=== PATIENT | female | born 1965 | race Caucasian/White ===

== ENCOUNTER → 2017-01-16 | Outpatient (CLI) | payer BC ==
--- NOTE | 2017-01-16 16:00 | CR ---
EXAMINATION: Two-view chest (PA and Lateral views). HISTORY: Shortness of breath. Comparison: CT 09/19/2015 FINDINGS: The trachea is midline. The cardiomediastinal silhouette is within normal limits. No pulmonary infil trates, effusions or pneumothorax. There is a calcified granuloma within the left lung base. Osseous structures appear unremarkable. IMPRESSION: No acute cardiopulmonary process.
== END ==
LOC: MW.CHFP 15:03
PROVIDERS: ATTEND Nurse Practitioner Family
DX: R06.02 Shortness of breath (principal); R05 Cough
CPT/HCPCS: 36415; 71020; 71020-26; 85025

== ENCOUNTER 2017-01-22 11:08 | Emergency (ER) | payer BC ==
[2017-01-22] MEDS ORDERED: Sodium Chloride 0.9% 10 ML Syringe FLUSH PRN ×2 (11:17→11:18)
[2017-01-22] MEDS ORDERED: Albuterol/Ipratropium 3.0-0.5 MG/3 ML Neb Soln NEB ONE ×2 (11:17→11:34)
[2017-01-22] MEDS ORDERED: Sodium Chloride 0.9% 2.5 ML Syringe FLUSH PRN ×2 (11:17→11:18)
[2017-01-22] MEDS ORDERED: methylPREDNISolone Sodium Succinate 125 MG/2 ML SDV IVPUSH ONE (11:18)
--- NOTE | 2017-01-22 11:35 | EDM.PDOC ---
ED HISTORY OF PRESENT ILLNESS - General Chief Complaint: Respiratory Problem Stated Complaint: SHORTNESS OF BREATH(COLD) Time Seen by Provider: 01/22/17 11:17 Source of Information: Reports: Patient History Limitations: Reports: Respiratory distress - History of Present Illness INITIAL COMMENTS - FREE TEXT/NARRATIVE: HISTORY AND PHYSICAL: [51-year-old female who has been taking her inhaler every half hour all night states she cannot breathe] History of Present Illness: [Patient was in the hospital year ago for acute bronchitis She was in the clinic is to make on antibiotics and an inhaler] Review of Systems: As per history of present illness and below otherwise all systems reviewed and negative. Past medical history: As per history of present illness and as reviewed below otherwise noncontributory. Surgical history: As per history of present illness and as reviewed below otherwise noncontributory. Social history: No reported history of drug or alcohol abuse. Family history: As per history of present illness and as reviewed below otherwise noncontributory. Physical exam: Alert teary-eyed HEENT: Atraumatic, normocehpalic, pupils reactive, negative for conjunctival pallor or scleral icterus, mucous membranes moist, throat clear, neck supple, nontender, trachea midline. Lungs: Tight on auscultation, breath sounds equal bilaterally, chest non tender. Crackles Heart: S1S2, regular, negative for clicks, rubs, or JVD. Abdomen: Soft, nondistended, nontender. Negative for masses or hepatossplenmegaly. Negative for costovertebral tenderness. Extremities: Atraumatic, negative for cords or calf pain. Neurovascular unremarkable. Neuro: Awake, alert, oriented. Cranial nerves II through XII unremarkable. Cerebellum unremarkable. Motor and sensory unremarkable throughout. Exam nonfocal. Diagnostics: [CBC CMP chest x-ray] Therapeutics: [] DuoNeb x2, Solu-Medrol IV Impression: [acute bronchiolitis/ reactive airway] Plan: [Neb machine DuoNeb treatment q 4 hours prn wheezing SOB. Robitussin with Codiene 2 tsp QID prn cough #160ml Follow up with your PCP, Dr. Baldwin call tomorrow for appt in 2 days.] Definitive disposition and diagnosis as appropriate pending reevaluation and review of above. Timing/Duration: Reports: Week(s): Severity: moderate Location, General: Reports: chest Improves with: Reports: None Worsens with: Reports: Breathing, Movement - Related Data Allergies/ADRs: Allergies Allergy/AdvReac Type Severity Reaction Status Date / Time No Known Allergies Allergy Verified 01/22/17 11:14 Home Meds: Home Meds Albuterol [Proventil HFA] 1 puff INH QID PRN #1 inhaler 09/22/15 [Rx] Albuterol/Ipratropium [DuoNeb 3.0-0.5 MG/3 ML] 3 ml NEB Q4HRRT #1 bottle [Rx] Azithromycin [Azithromycin] 1 tab PO ASDIRECTED 01/22/17 [History] Benzonatate 100 mg PO TID 01/22/17 [History] Past Medical History - Past Health History Medical/Surgical History: Denies Medical/Surgical History - Infectious Disease History Infectious Disease History: Reports: Chicken pox Social & Family History - Tobacco Use Smoking Status *Q: Former Smoker Years of Tobacco use: 34 Packs/Tins Daily: 1 Second Hand Smoke Exposure: Yes - Caffeine Use Caffeine Use: Reports: Coffee Caffeine Use Comment: 6-8 cups/day - Recreational Drug Use Recreational Drug Use: No ED ROS GENERAL - Review of Systems Review Of Systems: ROS reveals no pertinent complaints other than HPI. ED EXAM, GENERAL - Physical Exam Exam: See Below Course - Vital Signs Last Recorded V/S: Last Vital Signs Temp 36.3 C 01/22/17 11:17 Pulse 120 H 01/22/17 11:17 Resp 20 01/22/17 11:17 BP 184/91 H 01/22/17 11:17 Pulse Ox 93 L 01/22/17 11:17 - Orders/Labs/Meds Orders: Active Orders 24 hr Category Date Time Status RT Aerosol Therapy [RC] ASDIRECTED Care 01/22/17 11:17 Active RT Aerosol Therapy [RC] ASDIRECTED Care 01/22/17 11:34 Active Chest 2V [CR] Stat Exams 01/22/17 11:17 Taken Sodium Chloride 0.9% [Saline Flush] Med 01/22/17 11:17 Active 10 ml FLUSH ASDIRECTED PRN Sodium Chloride 0.9% [Saline Flush] Med 01/22/17 11:18 Active 10 ml FLUSH ASDIRECTED PRN Sodium Chloride 0.9% [Saline Flush] Med 01/22/17 11:17 Active 2.5 ml FLUSH ASDIRECTED PRN Sodium Chloride 0.9% [Saline Flush] Med 01/22/17 11:18 Active 2.5 ml FLUSH ASDIRECTED PRN Saline Lock Insert [OM.PC] Stat Ot 01/22/17 11:17 Ordered Saline Lock Insert [OM.PC] Stat Ot 01/22/17 11:18 Ordered Medication Orders Sodium Chloride (Saline Flush) 10 ml FLUSH ASDIRECTED PRN PRN Reason: Keep Vein Open Last Admin: 01/22/17 11:27 Dose: 10 ml Sodium Chloride (Saline Flush) 2.5 ml FLUSH ASDIRECTED PRN PRN Reason: Keep Vein Open Last Admin: 01/22/17 11:27 Dose: 2.5 ml Sodium Chloride (Saline Flush) 10 ml FLUSH ASDIRECTED PRN PRN Reason: Keep Vein Open Last Admin: 01/22/17 11:27 Dose: 10 ml Sodium Chloride (Saline Flush) 2.5 ml FLUSH ASDIRECTED PRN PRN Reason: Keep Vein Open Last Admin: 01/22/17 11:27 Dose: 2.5 ml Labs: Laboratory Tests 01/22/17 01/22/17 Range/Units 11:24 11:24 WBC 8.91 (4.0-11.0) K/uL RBC 4.66 (4.30-5.90) M/uL Hgb 14.0 (12.0-16.0) g/dL Hct 43.0 (36.0-46.0) % MCV 92.3 (80.0-98.0) fL MCH 30.0 (27.0-32.0) pg MCHC 32.6 (31.0-37.0) g/dL RDW Std Deviation 44.1 (28.0-62.0) fl RDW Coeff of Hui 13 (11.0-15.0) % Plt Count 262 (150-400) K/uL MPV 9.90 (7.40-12.00) fL Neut % (Auto) 71.0 (48.0-80.0) % Lymph % (Auto) 14.7 L (16.0-40.0) % [place] % (Auto) 7.1 (0.0-15.0) % Eos % (Auto) 6.6 (0.0-7.0) % Baso % (Auto) 0.6 (0.0-1.5) % Neut # 6.3 H (1.4-5.7) K/uL Lymph # 1.3 (0.6-2.4) K/uL [place] # 0.6 (0.0-0.8) K/uL Eos # 0.6 (0.0-0.7) K/uL Baso # 0.1 (0.0-0.1) K/uL Nucleated RBC % 0.0 /100WBC Nucleated RBCs # 0 K/uL Sodium 143 (136-146) mmol/L Potassium 3.9 (3.5-5.1) mmol/L Chloride 107 (98-110) mmol/L Carbon Dioxide 25 (21-31) mmol/L BUN 11 (6.0-23.0) mg/dL Creatinine 0.8 (0.6-1.5) mg/dL Est Cr Clr Drug Dosing 65.80 mL/min Estimated GFR (MDRD) > 60.0 ml/min Glucose 112 H (60-110) mg/dL Calcium 9.5 (8.8-10.8) mg/dL Total Bilirubin 0.7 (0.1-1.5) mg/dL AST 16 (5-40) IU/L ALT 19 (8-54) IU/L Alkaline Phosphatase 92 (40-150) Total Protein 8.2 H (6.0-8.0) g/dL Albumin 4.2 (3.5-5.0) g/dL Globulin 4.0 H (2.0-3.5) g/dL Albumin/Globulin Ratio 1.1 L (1.3-2.8) Meds: Medications Generic Name Dose Route Start Last Admin Trade Name Freq PRN Reason Stop Dose Admin Sodium Chloride 10 ml 01/22/17 11:17 01/22/17 11:27 Saline Flush FLUSH 10 ml ASDIRECTED PRN Administration Keep Vein Open Sodium Chloride 2.5 ml 01/22/17 11:17 01/22/17 11:27 Saline Flush FLUSH 2.5 ml ASDIRECTED PRN Administration Keep Vein Open Sodium Chloride 10 ml 01/22/17 11:18 01/22/17 11:27 Saline Flush FLUSH 10 ml ASDIRECTED PRN Administration Keep Vein Open Sodium Chloride 2.5 ml 01/22/17 11:18 01/22/17 11:27 Saline Flush FLUSH 2.5 ml ASDIRECTED PRN Administration Keep Vein Open Discontinued Medications Generic Name Dose Route Start Last Admin Trade Name Freq PRN Reason Stop Dose Admin Albuterol/Ipratropium 3 ml 01/22/17 11:17 01/22/17 11:27 Duoneb 3.0-0.5 Mg/3 Ml NEB 01/22/17 11:18 3 ml ONETIME ONE Administration Albuterol/Ipratropium 3 ml 01/22/17 11:34 01/22/17 11:49 Duoneb 3.0-0.5 Mg/3 Ml NEB 01/22/17 11:35 3 ml ONETIME ONE Administration Methylprednisolone Sodium Succinate 125 mg 01/22/17 11:18 01/22/17 11:27 Solu-Medrol IVPUSH 01/22/17 11:19 125 mg ONETIME ONE Administration Departure - Departure Time of Disposition: 12:38 Disposition: Home, Self-Care 01 Condition: good Clinical Impression: Acute bronchiolitis Qualifiers: Bronchiolitis organism: unspecified organism Qualified Code(s): J21.9 - Acute bronchiolitis, unspecified Reactive airway disease Qualifiers: Asthma severity: moderate persistent Asthma complication type: with acute exacerbation Qualified Code(s): J45.41 - Moderate persistent asthma with (acute ) exacerbation Prescriptions: Albuterol/Ipratropium [DuoNeb 3.0-0.5 MG/3 ML] 3 ml NEB Q4HRRT #1 bottle Forms: ED Department Discharge Additional Instructions: The following information is given to patients seen in the emergency department who are being discharged to home. This information is to outline your options for follow-up care. We provide all patients seen in our emergency department with a follow-up referral. The need for follow-up, as well as the timing and circumstances, are variable depending upon the specifics of your emergency department visit. If you don't have a primary care physician on staff, we will provide you with a referral. We always advise you to contact your personal physician following an emergency department visit to inform them of the circumstance of the visit and for follow-up with them and/or the need for any referrals to a consulting specialist. The emergency department will also refer you to a specialist when appropriate. This referral assures that you have the opportunity for followup care with a specialist. All of these measure are taken in an effort to provide you with optimal care, which includes your followup. Under all circumstances we always encourage you to contact your private physician who remains a resource for coordinating your care. When calling for followup care, please make the office aware that this follow-up is from your recent emergency room visit. If for any reason you are refused follow-up, please contact the [facility] emergency department at and asked to speak to the emergency department charge nurse. Followup with her primary care provider Dr. Baldwin in 2 days - My Orders Last 24 Hours: My Active Orders 01/22/17 11:17 RT Aerosol Therapy [RC] ASDIRECTED Chest 2V [CR] Stat Sodium Chloride 0.9% [Saline Flush] 10 ml FLUSH ASDIRECTED PRN Sodium Chloride 0.9% [Saline Flush] 2.5 ml FLUSH ASDIRECTED PRN Saline Lock Insert [OM.PC] Stat 01/22/17 11:18 Sodium Chloride 0.9% [Saline Flush] 10 ml FLUSH ASDIRECTED PRN Sodium Chloride 0.9% [Saline Flush] 2.5 ml FLUSH ASDIRECTED PRN Saline Lock Insert [OM.PC] Stat 01/22/17 11:34 RT Aerosol Therapy [RC] ASDIRECTED - Assessment/Plan Last 24 Hours: My Active Orders 01/22/17 11:17 RT Aerosol Therapy [RC] ASDIRECTED Chest 2V [CR] Stat Sodium Chloride 0.9% [Saline Flush] 10 ml FLUSH ASDIRECTED PRN Sodium Chloride 0.9% [Saline Flush] 2.5 ml FLUSH ASDIRECTED PRN Saline Lock Insert [OM.PC] Stat 01/22/17 11:18 Sodium Chloride 0.9% [Saline Flush] 10 ml FLUSH ASDIRECTED PRN Sodium Chloride 0.9% [Saline Flush] 2.5 ml FLUSH ASDIRECTED PRN Saline Lock Insert [OM.PC] Stat 01/22/17 11:34 RT Aerosol Therapy [RC] ASDIRECTED
[2017-01-22 11:53] LABS: CHLORIDE,CL 107 mmol/L (98-110); SODIUM,NA 143 mmol/L (136-146)
[2017-01-22 12:57] VITALS: BP 154/78
--- NOTE | 2017-01-23 21:20 | CR ---
EXAM DATE: 01/22/17 PATIENT'S AGE: 51 Patient: SEVEN PEREA Facility: [place], [place] Site . Site : [id number] Study: XRay Chest [id number]/12/2017 11:44:57 AM Ordering Physician: Doctor Marquez Final Report: Indication: [id number]. Technique: PA and lateral chest x-ray Comparison: January 16, 2017. Findings: Benign calcified granuloma in the left lung base medially is stable with calcified lymph nodes in the left hilar region stable with findings consistent with sequela of previous granulomatous disease. Lungs are otherwise clear without infiltrate. Heart size is normal. Otherwise negative. Dictated by Doron Tyler MD @ Jan 22 2017 11:57AM (Electronic Signature) Report Signed by Proxy and Original Signed Document filed in the Medical Record. [place]
== END 2017-01-22 12:45 | disposition home or self-care (01) ==
LOC: MW.ED 11:08
DX: J45.41 Moderate persistent asthma with (acute) exacerbation (principal); J21.9 Acute bronchiolitis, unspecified; Z87.891 Personal history of nicotine dependence; Z79.899 Other long term (current) drug therapy
CPT/HCPCS: 36415; 71020; 80053; 85025; 87804; 87807; 94640; 94664; 96374; 99285; J2930; 99284

== ENCOUNTER 2017-01-24 19:10 | Observation (INO) | payer BC ==
[2017-01-24] MEDS ORDERED: Albuterol/Ipratropium 3.0-0.5 MG/3 ML Neb Soln NEB ONE (19:14)
[2017-01-24] MEDS ORDERED: Sodium Chloride 0.9% 10 ML Syringe FLUSH PRN (19:20)
[2017-01-24] MEDS ORDERED: Sodium Chloride 0.9% 1,000 ML IV ONE (19:20)
[2017-01-24] MEDS ORDERED: methylPREDNISolone Sodium Succinate 125 MG/2 ML SDV IVPUSH ONE (19:20)
[2017-01-24] MEDS ORDERED: Sodium Chloride 0.9% 2.5 ML Syringe FLUSH PRN (19:20)
--- NOTE | 2017-01-24 19:24 | EDM.PDOC ---
ED HISTORY OF PRESENT ILLNESS - General Chief Complaint: Respiratory Problem Stated Complaint: MARC Time Seen by Provider: 01/24/17 19:13 - History of Present Illness INITIAL COMMENTS - FREE TEXT/NARRATIVE: HISTORY AND PHYSICAL: History of present illness: The patient is a 51-year-old female who follows with our clinic with Dr. Baldwin and was seen here in our ED 2 days ago for shortness of breath cough occasionally productive of phlegm and a long-standing history of smoking use. Patient tells me today that she had a similar episode with the shortness of breath and no wheezing in September of 2015 and was treated with nebulizer treatments and stop smoking at that time. She was never formally diagnosed with any lung disease or disorder and has done well since 2014. She states that after she was seen here on January 22 she has been doing her nebulizer treatments but has noticed that she has had to do them every 3 hours because she does not make it every 4 hours. She was sent home with a nebulizer treatments as well as Robitussin with codeine but did not receive steroids for home. Patient had CBC CMP RSV influenza and chest x-ray performed on that ED visit and was given Solu- Medrol in the ER but not sent home with steroids. She has not yet been able to followup with her provider and is here with worsening of symptoms. Patient denies any fever nausea vomiting abdominal pain or chest pain and only feels uncomfortable due to the coughing and the work of breathing. Patient says she has not smoked cigarettes since 2014. Patient denies any leg pain or swelling. Patient says that when she coughs it's mostly dry but occasionally will get up some pepe phlegm. Patient says she has a pulse ox at home and has been checking it and it has only been 90% Review of systems: As per history of present illness and below otherwise all systems reviewed and negative. Past medical history: As per history of present illness and as reviewed below otherwise noncontributory. Surgical history: As per history of present illness and as reviewed below otherwise noncontributory. Social history: No reported history of drug or alcohol abuse. Family history: As per history of present illness and as reviewed below otherwise noncontributory. Physical exam: General: Well-developed well-nourished female who is not breathless on my evaluation and O2 sat was 92%. Other vitals have been reviewed by me. HEENT: Atraumatic, normocephalic, pupils reactive, negative for conjunctival pallor or scleral icterus, mucous membranes moist, throat clear, neck supple, nontender, trachea midline. Lungs: Tight air exchange throughout all cazares with expiratory wheezing bilaterally but no overt work of breathing or sensory muscle use, breath sounds equal bilaterally, chest nontender. Heart: S1S2, regular rhythm but tachycardic rate on my evaluation, negative for clicks, rubs, or JVD. Abdomen: Soft, nondistended, nontender. NABS Skin: Normal turgor no diaphoresis or rashes appreciated Genitourinary: Deferred. Rectal: Deferred. Extremities: Atraumatic, negative for cords or calf pain. Neurovascular unremarkable. No pedal edema or leg asymmetry Neuro: Awake, alert, oriented. Cranial nerves II through XII unremarkable. Cerebellum unremarkable. Motor and sensory unremarkable throughout. Exam nonfocal. Diagnostics: CBC lactic acid chest x-ray The diagnostics performed on January 22, CBC CMP RSV influenza and chest x-ray were reviewed by me Therapeutics: IV fluids duo neb monitor oxygen Solu-Medrol 2005: Reevaluation patient is moving air much better but still has some tightness in the bases and expiratory wheezing. Her O2 sat on oxygen is 97% and I discussed with her all testing results. I recommended observation admission for the hypoxia and for more aggressive pulmonary treatment and she is agreeable. I will discuss the case with our hospitalist and plan for observation admission 2013: Case d/w Dr Urbano; he accepts the patient for observation admission Impression: Bronchospasm/bronchiolitis with mild hypoxia Definitive disposition and diagnosis as appropriate pending reevaluation and review of above. - Related Data Allergies/ADRs: Allergies Allergy/AdvReac Type Severity Reaction Status Date / Time No Known Allergies Allergy Verified 01/22/17 11:14 Home Meds: Home Meds Albuterol [Proventil HFA] 1 puff INH QID PRN #1 inhaler 09/22/15 [Rx] Albuterol/Ipratropium [DuoNeb 3.0-0.5 MG/3 ML] 3 ml NEB Q4HRRT #1 bottle [Rx] Azithromycin [Azithromycin] 1 tab PO ASDIRECTED 01/22/17 [History] Benzonatate 100 mg PO TID 01/22/17 [History] Past Medical History - Past Health History Medical/Surgical History: Denies Medical/Surgical History HEENT History: Reports: None Respiratory History: Reports: Bronchitis, recurrent - Infectious Disease History Infectious Disease History: Reports: Chicken pox - Past Surgical History HEENT Surgical History: Reports: None Social & Family History - Tobacco Use Smoking Status *Q: Former Smoker Years of Tobacco use: 34 Packs/Tins Daily: 1 Second Hand Smoke Exposure: Yes - Caffeine Use Caffeine Use: Reports: Coffee Caffeine Use Comment: 6-8 cups/day - Recreational Drug Use Recreational Drug Use: No ED ROS GENERAL - Review of Systems Review Of Systems: ROS reveals no pertinent complaints other than HPI. ED EXAM, GENERAL - Physical Exam Exam: See Below (See dictation) Course - Vital Signs Last Recorded V/S: Last Vital Signs Temp 36.6 C 01/24/17 19:12 Pulse 126 H 01/24/17 19:12 Resp 16 01/24/17 19:12 BP 152/97 H 01/24/17 19:12 Pulse Ox 93 L 01/24/17 19:12 - Orders/Labs/Meds Orders: Active Orders 24 hr Category Date Time Status Patient Status [ADT] Stat ADT 01/24/17 20:15 Ordered Cardiac Monitoring [RC] . DIRECTED Care 01/24/17 19:20 Active Oxygen Therapy, ED [RC] ASDIRECTED Care 01/24/17 19:20 Active Pulse Oximetry [RC] ASDIRECTED Care 01/24/17 19:20 Active RT Aerosol Therapy [RC] ASDIRECTED Care 01/24/17 19:14 Active Chest 1V Frontal [CR] Stat Exams 01/24/17 19:20 Taken Sodium Chloride 0.9% [Normal Saline] 1,000 ml Med 01/24/17 19:20 Active IV STAT Sodium Chloride 0.9% [Saline Flush] Med 01/24/17 19:20 Active 10 ml FLUSH ASDIRECTED PRN Sodium Chloride 0.9% [Saline Flush] Med 01/24/17 19:20 Active 2.5 ml FLUSH ASDIRECTED PRN Saline Lock Insert [OM.PC] Stat Oth 01/24/17 19:19 Ordered Medication Orders Sodium Chloride (Normal Saline) 1,000 mls @ 999 mls/hr IV STAT ONE Stop: 01/24/17 20:20 Last Admin: 01/24/17 19:41 Dose: 999 mls/hr Sodium Chloride (Saline Flush) 10 ml FLUSH ASDIRECTED PRN PRN Reason: Keep Vein Open Sodium Chloride (Saline Flush) 2.5 ml FLUSH ASDIRECTED PRN PRN Reason: Keep Vein Open Labs: Laboratory Tests 01/24/17 01/24/17 Range/Units 19:35 19:35 WBC 10.85 (4.0-11.0) K/uL RBC 4.62 (4.30-5.90) M/uL Hgb 14.0 (12.0-16.0) g/dL Hct 43.2 (36.0-46.0) % MCV 93.5 (80.0-98.0) fL MCH 30.3 (27.0-32.0) pg MCHC 32.4 (31.0-37.0) g/dL RDW Std Deviation 46.5 (28.0-62.0) fl RDW Coeff of Hui 14 (11.0-15.0) % Plt Count 263 (150-400) K/uL MPV 9.90 (7.40-12.00) fL Neut % (Auto) 66.9 (48.0-80.0) % Lymph % (Auto) 15.7 L (16.0-40.0) % [place] % (Auto) 7.9 (0.0-15.0) % Eos % (Auto) 8.8 H (0.0-7.0) % Baso % (Auto) 0.7 (0.0-1.5) % Neut # 7.3 H (1.4-5.7) K/uL Lymph # 1.7 (0.6-2.4) K/uL [place] # 0.9 H (0.0-0.8) K/uL Eos # 1.0 H (0.0-0.7) K/uL Baso # 0.1 (0.0-0.1) K/uL Nucleated RBC % 0.0 /100WBC Nucleated RBCs # 0 K/uL Lactate 1.1 (0.20-2.00) mmol/L Meds: Medications Generic Name Dose Route Start Last Admin Trade Name Freq PRN Reason Stop Dose Admin Sodium Chloride 1,000 mls @ 999 mls/hr 01/24/17 19:20 01/24/17 19:41 Normal Saline IV 01/24/17 20:20 999 mls/hr STAT ONE Administration Sodium Chloride 10 ml 01/24/17 19:20 Saline Flush FLUSH ASDIRECTED PRN Keep Vein Open Sodium Chloride 2.5 ml 01/24/17 19:20 Saline Flush FLUSH ASDIRECTED PRN Keep Vein Open Discontinued Medications Generic Name Dose Route Start Last Admin Trade Name Aby PRN Reason Stop Dose Admin Albuterol/Ipratropium 3 ml 01/24/17 19:14 01/24/17 19:21 Duoneb 3.0-0.5 Mg/3 Ml NEB 01/24/17 19:15 3 ml ONETIME ONE Administration Methylprednisolone Sodium Succinate 125 mg 01/24/17 19:20 01/24/17 19:41 Solu-Medrol IVPUSH 01/24/17 19:21 125 mg ONETIME ONE Administration Departure - Departure Time of Disposition: 20:18 Disposition: Refer to Observation Condition: good Clinical Impression: Bronchospasm, Hypoxia Forms: ED Department Discharge - My Orders Last 24 Hours: My Active Orders 01/24/17 19:14 RT Aerosol Therapy [RC] ASDIRECTED 01/24/17 19:19 Saline Lock Insert [OM.PC] Stat 01/24/17 19:20 Cardiac Monitoring [RC] . DIRECTED Oxygen Therapy, ED [RC] ASDIRECTED Pulse Oximetry [RC] ASDIRECTED Chest 1V Frontal [CR] Stat Sodium Chloride 0.9% [Normal Saline] 1,000 ml IV STAT Sodium Chloride 0.9% [Saline Flush] 10 ml FLUSH ASDIRECTED PRN Sodium Chloride 0.9% [Saline Flush] 2.5 ml FLUSH ASDIRECTED PRN 01/24/17 20:15 Patient Status [ADT] Stat - Assessment/Plan Last 24 Hours: My Active Orders 01/24/17 19:14 RT Aerosol Therapy [RC] ASDIRECTED 01/24/17 19:19 Saline Lock Insert [OM.PC] Stat 01/24/17 19:20 Cardiac Monitoring [RC] . DIRECTED Oxygen Therapy, ED [RC] ASDIRECTED Pulse Oximetry [RC] ASDIRECTED Chest 1V Frontal [CR] Stat Sodium Chloride 0.9% [Normal Saline] 1,000 ml IV STAT Sodium Chloride 0.9% [Saline Flush] 10 ml FLUSH ASDIRECTED PRN Sodium Chloride 0.9% [Saline Flush] 2.5 ml FLUSH ASDIRECTED PRN 01/24/17 20:15 Patient Status [ADT] Stat
[2017-01-24] MEDS ORDERED: Albuterol/Ipratropium 3.0-0.5 MG/3 ML Neb Soln NEB PRN (21:05)
[2017-01-24] MEDS ORDERED: Flu Vaccine 2016-17(36Mos+)/PF 60 MCG/0.5 ML Syringe IM ONE (21:07)
[2017-01-24] MEDS ORDERED: Albuterol 6.7 GM Inhaler INH PRN (21:33)
[2017-01-24] MEDS: Albuterol/Ipratropium 3.0-0.5 MG/3 ML Neb Soln NEB PRN (22:35)
[2017-01-24] MEDS ORDERED: guaiFENesin 600 MG Tab.ER PO SCH (23:12)
[2017-01-24] MEDS ORDERED: Ondansetron 4 MG/2 ML SDV IVPUSH PRN (23:15)
--- NOTE | 2017-01-24 23:15 | PCM.HP ---
H&P History of Present Illness - General Date of Service: 01/24/17 Admit Problem/Dx: Admission Diagnosis/Problem Admission Diagnosis/Problem Bronchospasm - History of Present Illness Initial Comments - Free Text/Narative: 51 yo female who presents with several day history of shortness of breath, cough and wheezing. - Related Data Allergies/Adverse Reactions: Allergies Allergy/AdvReac Type Severity Reaction Status Date / Time No Known Allergies Allergy Verified 01/22/17 11:14 Home Medications: Home Meds Albuterol [Proventil HFA] 1 puff INH QID PRN #1 inhaler 09/22/15 [Rx] Albuterol/Ipratropium [DuoNeb 3.0-0.5 MG/3 ML] 3 ml NEB Q4HRRT #1 bottle [Rx] guaiFENesin [Cough Syrup] 100 mg PO Q4HR 01/24/17 [History] guaiFENesin [Mucinex] 1 tab PO BID 01/24/17 [History] Past Medical History - Past Health History Medical/Surgical History: Denies Medical/Surgical History HEENT History: Reports: None Cardiovascular History: Reports: None Respiratory History: Reports: Bronchitis, recurrent Gastrointestinal History: Reports: None Genitourinary History: Reports: None [employer]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: Musculoskeletal History: Reports: None Neurological History: Reports: Migraines Psychiatric History: Reports: None Endocrine/Metabolic History: Reports: None Hematologic History: Reports: None Immunologic History: Reports: None Oncologic (Cancer) History: Reports: None Dermatologic History: Reports: None - Infectious Disease History Infectious Disease History: Reports: Chicken pox - Past Surgical History Head Surgeries/Procedures: Reports: None HEENT Surgical History: Reports: None Cardiovascular Surgical History: Reports: None Respiratory Surgical History: Reports: None GI Surgical History: Reports: None Female Surgical History: Reports: Tubal ligation Neurological Surgical History: Reports: None Musculoskeletal Surgical History: Reports: None Oncologic Surgical History: Reports: None Dermatological Surgical History: Reports: None Social & Family History - Family History Family Medical History: Noncontributory - Tobacco Use Smoking Status *Q: Former Smoker Years of Tobacco use: 33 Packs/Tins Daily: 1 Used Tobacco, but Quit: Yes Month Tobacco Last Used: September, Second Hand Smoke Exposure: Yes - Caffeine Use Caffeine Use: Reports: Coffee Caffeine Use Comment: 6-8 cups a day - Recreational Drug Use Recreational Drug Use: No H&P Review of Systems - Review of Systems: Review Of Systems: See Below General: Reports: no symptoms HEENT: Reports: no symptoms Pulmonary: Reports: Shortness of Breath, Cough. Denies: Pleuritic Chest Pain Cardiovascular: Reports: no symptoms. Denies: chest pain, edema Gastrointestinal: Reports: No symptoms Genitourinary: Reports: no symptoms Musculoskeletal: Reports: no symptoms Skin: Reports: no symptoms Psychiatric: Reports: no symptoms Neurological: Reports: No Symptoms Hematologic/Lymphatic: Reports: no symptoms Immunologic: Reports: no symptoms Exam - Exam Exam: See Below - Vital Signs Vital Signs: Last Vital Signs Temp 37.0 C 01/24/17 20:45 Pulse 115 H 01/24/17 20:21 Resp 20 01/24/17 20:45 BP 135/85 01/24/17 20:45 Pulse Ox 95 01/24/17 20:45 Weight: 88.6 kg - Exam General: alert, oriented, 4 Lungs: Wheezing (mild in all lung cazares) Cardiovascular: regular rate, regular rhythm Abdomen: normal bowel sounds, soft Extremities: 3, normal inspection, 10 Skin: warm, dry, intact Neurological: No: focal deficit - Patient Data Result Diagrams: 01/25/17 04:58 01/25/17 04:58 *Q Meaningful Use (ADM) - VTE *Q VTE Criteria *Q: - Stroke *Q Stroke Criteria *Q: - AMI *Q AMI Criteria *Q: Problem List Initiated/Reviewed/Updated: Yes Orders Last 24hrs: Active Orders 24 hr Category Date Time Status Regular Diet [DIET] Diet 01/24/17 Breakfast Active BMP [BASIC METABOLIC PANEL,BMP] [CHEM] Routine Lab 01/25/17 05:00 Ordered CBC WITH AUTO DIFF [HEME] Routine Lab 01/25/17 05:00 Ordered Albuterol [Proventil HFA] Med 01/24/17 21:33 Active 0 gm INH QID PRN Albuterol/Ipratropium [DuoNeb 3.0-0.5 MG/3 ML] Med 01/24/17 21:48 Active 3 ml NEB Q1H PRN Albuterol/Ipratropium [DuoNeb 3.0-0.5 MG/3 ML] Med 01/25/17 00:00 Active 3 ml NEB Q6HRRT guaiFENesin [Mucinex] Med 01/24/17 23:15 Ordered 1 tab PO BID methylPREDNISolone Sod Succ [Solu-MEDROL] Med 01/25/17 02:00 Active 125 mg IVPUSH Q6H Medication Orders Albuterol (Proventil Hfa) 0 gm INH QID PRN PRN Reason: Wheezing Albuterol/Ipratropium (Duoneb 3.0-0.5 Mg/3 Ml) 3 ml NEB Q6HRRT [facility] Albuterol/Ipratropium (Duoneb 3.0-0.5 Mg/3 Ml) 3 ml NEB Q1H PRN PRN Reason: Shortness Of Breath / Wheezing Last Admin: 01/24/17 22:35 Dose: 3 ml Methylprednisolone Sodium Succinate (Solu-Medrol) 125 mg IVPUSH Q6H [facility] Non-Formulary Medication (Guaifenesin [Mucinex]) 1 tab PO BID [facility] Sodium Chloride (Saline Flush) 10 ml FLUSH ASDIRECTED PRN PRN Reason: Keep Vein Open Sodium Chloride (Saline Flush) 2.5 ml FLUSH ASDIRECTED PRN PRN Reason: Keep Vein Open Assessment/Plan Comment:: 51 yo female admitted for acute bronchitis. We will treat with duonebs, solumedrol and supplemental oxygen.
[2017-01-24] MEDS: guaiFENesin 600 MG Tab.ER PO SCH (23:27)
[2017-01-25] MEDS ORDERED: guaiFENesin 100 MG/5 ML Soln 10 ML UD Cup PO SCH
[2017-01-25] MEDS: Albuterol/Ipratropium 3.0-0.5 MG/3 ML Neb Soln NEB SCH ×5 (00:15→23:38)
[2017-01-25] MEDS: methylPREDNISolone Sodium Succinate 125 MG/2 ML SDV IVPUSH SCH ×4 (01:49→20:34)
[2017-01-25] MEDS: Albuterol/Ipratropium 3.0-0.5 MG/3 ML Neb Soln NEB PRN (03:59)
[2017-01-25 05:29] LABS: CHLORIDE,CL 107 mmol/L (98-110); SODIUM,NA 140 mmol/L (136-146)
[2017-01-25] MEDS ORDERED: Albuterol 8 GM Inhaler INH PRN (07:27)
[2017-01-25] MEDS: guaiFENesin 600 MG Tab.ER PO SCH ×2 (08:16→20:30)
[2017-01-25] MEDS: Enoxaparin 40 MG/0.4 ML Syringe SUBCUT SCH (08:16)
[2017-01-25] MEDS: Acetaminophen 325 MG Tab PO PRN ×2 (08:21→12:14)
--- NOTE | 2017-01-25 10:37 | PCM.PN ---
- General Info Date of Service: 01/25/17 Admission Dx/Problem (Free Text): Admission Diagnosis/Problem Admission Diagnosis/Problem Bronchospasm Functional Status: Reports: pain controlled, tolerating diet, incentive spirometry - Review of Systems General: Reports: Fatigue. Denies: Fever, Weakness, Malaise HEENT: Denies: sinus congestion, sore throat Pulmonary: Reports: shortness of breath, wheezing. Denies: pleuritic chest pain , hemoptysis Cardiovascular: Denies: Chest Pain, Palpitations, Edema Gastrointestinal: Denies: Abdominal pain, Constipation Genitourinary: Denies: dysuria, hematuria Musculoskeletal: Denies: neck pain, leg pain, foot pain Skin: Denies: cyanosis Neurological: Denies: Confusion, Dizziness, Headache Psychiatric: Denies: confusion, depression - Patient Data Vitals - most recent: Last Vital Signs Temp 36.0 C 01/25/17 04:00 Pulse 104 H 01/25/17 04:00 Resp 18 01/25/17 04:00 BP 125/90 01/25/17 04:00 Pulse Ox 95 01/25/17 04:00 Weight - most recent: 88.6 kg I&O - last 24 hours: Intake & Output 01/24/17 01/25/17 01/25/17 22:59 06:59 14:59 Intake Total 1000 700 Output Total 1000 Balance 1000 -300 Lab Results last 24 hrs: Laboratory Results - last 24 hr 01/25/17 01/25/17 Range/Units 04:58 04:58 WBC 9.91 (4.0-11.0) K/uL RBC 4.55 (4.30-5.90) M/uL Hgb 13.5 (12.0-16.0) g/dL Hct 42.4 (36.0-46.0) % MCV 93.2 (80.0-98.0) fL MCH 29.7 (27.0-32.0) pg MCHC 31.8 (31.0-37.0) g/dL RDW Std Deviation 46.0 (28.0-62.0) fl RDW Coeff of Hui 14 (11.0-15.0) % Plt Count 269 (150-400) K/uL MPV 10.00 (7.40-12.00) fL Neut % (Auto) 93.6 H (48.0-80.0) % Lymph % (Auto) 5.5 L (16.0-40.0) % [place]cher % (Auto) 0.7 (0.0-15.0) % Eos % (Auto) 0.1 (0.0-7.0) % Baso % (Auto) 0.1 (0.0-1.5) % Neut # 9.3 H (1.4-5.7) K/uL Lymph # 0.6 (0.6-2.4) K/uL [place]cher # 0.1 (0.0-0.8) K/uL Eos # 0.0 (0.0-0.7) K/uL Baso # 0.0 (0.0-0.1) K/uL Nucleated RBC % 0.0 /100WBC Nucleated RBCs # 0 K/uL Sodium 140 (136-146) mmol/L Potassium 4.4 (3.5-5.1) mmol/L Chloride 107 (98-110) mmol/L Carbon Dioxide 24 (21-31) mmol/L BUN 9 (6.0-23.0) mg/dL Creatinine 0.7 (0.6-1.5) mg/dL Est Cr Clr Drug Dosing 75.20 mL/min Estimated GFR (MDRD) > 60.0 ml/min Glucose 157 H (60-110) mg/dL Calcium 9.0 (8.8-10.8) mg/dL Med Orders - Current: Current Medications Acetaminophen (Tylenol) 650 mg PO Q4H PRN PRN Reason: Pain (Mild 1-3)/fever Last Admin: 01/25/17 08:21 Dose: 650 mg Albuterol (Ventolin Hfa) 0 gm INH QID PRN PRN Reason: Wheezing Albuterol/Ipratropium (Duoneb 3.0-0.5 Mg/3 Ml) 3 ml NEB Q6HRRT [facility] Last Admin: 01/25/17 06:08 Dose: 3 ml Albuterol/Ipratropium (Duoneb 3.0-0.5 Mg/3 Ml) 3 ml NEB Q1H PRN PRN Reason: Shortness Of Breath / Wheezing Last Admin: 01/25/17 03:59 Dose: 3 ml Enoxaparin Sodium (Lovenox) 40 mg SUBCUT DAILY [facility] Last Admin: 01/25/17 08:16 Dose: 40 mg Guaifenesin (Mucinex) 1,200 mg PO BID [facility] Last Admin: 01/25/17 08:16 Dose: 1,200 mg Methylprednisolone Sodium Succinate (Solu-Medrol) 125 mg IVPUSH Q6H [facility] Last Admin: 01/25/17 08:18 Dose: 125 mg Ondansetron HCl (Zofran) 4 mg IVPUSH Q4H PRN PRN Reason: Nausea Sodium Chloride (Saline Flush) 10 ml FLUSH ASDIRECTED PRN PRN Reason: Keep Vein Open Sodium Chloride (Saline Flush) 2.5 ml FLUSH ASDIRECTED PRN PRN Reason: Keep Vein Open Discontinued Medications Albuterol (Proventil Hfa) 0 gm INH QID PRN PRN Reason: Wheezing Albuterol/Ipratropium (Duoneb 3.0-0.5 Mg/3 Ml) 3 ml NEB ONETIME ONE Stop: 01/24/17 19:15 Last Admin: 01/24/17 19:21 Dose: 3 ml Albuterol/Ipratropium (Duoneb 3.0-0.5 Mg/3 Ml) 3 ml NEB ASDIRECTED PRN PRN Reason: Shortness Of Breath / Wheezing Guaifenesin (Robitussin) 100 mg PO Q4HR [facility] Guaifenesin (Mucinex) 600 mg PO Q12H [facility] Last Admin: 01/24/17 23:23 Dose: Not Given Sodium Chloride (Normal Saline) 1,000 mls @ 999 mls/hr IV STAT ONE Stop: 01/24/17 20:20 Last Admin: 01/24/17 19:41 Dose: 999 mls/hr Influenza Virus Vaccine (Fluzone/Fluarix 2015- Vaccine) 60 mcg IM .ONCE ONE Stop: 01/24/17 21:08 Methylprednisolone Sodium Succinate (Solu-Medrol) 125 mg IVPUSH ONETIME ONE Stop: 01/24/17 19:21 Last Admin: 01/24/17 19:41 Dose: 125 mg - Exam Quality Assessment: supplemental oxygen, DVT prophylaxis General: alert, oriented, cooperative, no acute distress HEENT: Pupils equal, Pupils reactive, EOMI, Mucous membr. moist/pink Neck: supple, trachea midline, no JVD Lungs: Decreased breath sounds, Wheezing Cardiovascular: Regular Rate, Regular Rhythm Abdomen: bowel sounds present, soft, no tenderness, no distension Back Exam: normal inspection Extremities: no edema, normal pulses, no tenderness/swelling, no calf tenderness Peripheral Pulses: 2+: radial (L), radial (R), posterior tibial (L), posterior tibial (R), dorsalis pedis (L), dorsalis pedis (R) Skin: warm, dry, intact Neurological: no new focal deficit Psy/Mental Status: alert, normal affect, normal mood - Problem List & Annotations (1) Hypoxia SNOMED Code(s): 402217555, 797393870 Code(s): R09.02 - HYPOXEMIA Status: Acute Priority: High Current Visit : Yes (2) Acute bronchiolitis SNOMED Code(s): 6101904 Code(s): J21.9 - ACUTE BRONCHIOLITIS, UNSPECIFIED Status: Acute Priority : High Current Visit: No Qualifiers: Bronchiolitis organism: unspecified organism Qualified Code(s): J21.9 - Acute bronchiolitis, unspecified - Problem List Review Problem List Initiated/Reviewed/Updated: Yes - Plan Plan:: 51 yo female admitted for acute bronchitis with history of reactive airway disease and suspected COPD Acute bronchitis: Patient is improved overnight but still feeling chest tightness with wheezing. No white count will cont. duonebs, solumedrol and supplemental oxygen. Will try and ween oxygen today and plan for possible discharge tomorrow. VTE: Lovenox, SCD Dispo: Pending tomorrow.
[2017-01-25] MEDS: Ibuprofen 400 MG Tab PO PRN (20:33)
[2017-01-25] MEDS ORDERED: Benzonatate 100 MG Cap PO PRN (23:32)
[2017-01-26] MEDS: methylPREDNISolone Sodium Succinate 125 MG/2 ML SDV IVPUSH SCH ×3 (02:38→14:06)
[2017-01-26] MEDS: Ibuprofen 400 MG Tab PO PRN ×2 (02:38→08:44)
[2017-01-26 05:45] LABS: CHLORIDE,CL 106 mmol/L (98-110); SODIUM,NA 142 mmol/L (136-146)
[2017-01-26] MEDS: Albuterol/Ipratropium 3.0-0.5 MG/3 ML Neb Soln NEB SCH ×2 (06:40→11:35)
[2017-01-26] MEDS: guaiFENesin 600 MG Tab.ER PO SCH (08:39)
[2017-01-26] MEDS: Enoxaparin 40 MG/0.4 ML Syringe SUBCUT SCH (08:40)
--- NOTE | 2017-01-26 11:56 | PCM.DCSUM1 ---
Discharge Summary - Hospital Course HPI Initial Comments: 51 yo female admitted on 01/25/16 for acute bronchitis with bronchiospasm and mild hypoxemia. Brief History: Patient is a 51-year-old female followed by Dr. Baldwin who presented to the ED on 01/25/16 with worsening shortness of breath, productive cough and long standing smoking history. She had been seen in the ED 2 days previously for similar symptoms but was treated with steroids and sent home after improvement. She worsened over the next two days and presented again with shortness of breath and wheezing. She had been doing nebulize treatments treatments at home with duo-nebs. She stated that she had no formal diagnoses of lung disease but had multiple episodes in the last year and had been hospitalized in the past for similar episodes requiring IV steroids and breathing treatments. She did state she had a perscription for Spiriva as well as duo-nebs and mucomist at home. Patient denied any fever, chills, nausea, vomiting, chest pain, or syncopal episodes. In the ED, her sat's were 90% and secondary to her multiple visits was admitted for acute bronchitis, brochiospasm , and mild hypoxemia - Discharge Data Discharge Date: 01/26/17 Discharge Disposition: Home, Self-Care 01 Condition: Good - Discharge Diagnosis/Problem(s) (1) Hypoxia SNOMED Code(s): 434429900, 615395051 ICD Code: R09.02 - HYPOXEMIA Status: Acute Priority: High Current Visit : Yes (2) Acute bronchiolitis SNOMED Code(s): 1057035 ICD Code: J21.9 - ACUTE BRONCHIOLITIS, UNSPECIFIED Status: Acute Priority : High Current Visit: No Qualifiers: Bronchiolitis organism: unspecified organism Qualified Code(s): J21.9 - Acute bronchiolitis, unspecified - Patient Summary/Data Hospital Course: Patient was treated with IV solu-medrol and duo-nebs. CXR showed no signs of infection and patient remained afebrile throughout stay. She did well and was discharged on 01/26/17 with a prescription for Benzonate, Advair, Montelukast. Patient had a prescription for Duo-nebs at how which she was instructed to use three times daily or as needed for acute exacerbations. She was scheduled to follow-up with Dr. Baldwin in 2 weeks and suggested PFT's for suspected COPD with asthma component. Patient understood all instructions and was discharge in good condition with oxygen saturation on 95% on room air. - Patient Instructions Diet: Usual Diet as Tolerated Activity: As Tolerated Driving: Do Not Drive Showering/Bathing: May Shower Notify Provider of: Fever, Increased Pain, Swelling and Redness, Drainage, Nausea and/or Vomiting - Discharge Plan Prescriptions/Med Rec: Benzonatate [Tessalon Perles] 100 mg PO TID PRN #12 cap PRN Reason: Cough Fluticasone/Salmeterol [Advair Diskus 250-50] 1 puff INH BID #1 inhaler Montelukast [Singulair] 10 mg PO BEDTIME #30 tablet Prednisone [IJD: predniSONE] 20 mg PO WITHBREAKFAST #30 tab Home Medications: Home Meds Albuterol [Proventil HFA] 1 puff INH QID PRN #1 inhaler 09/22/15 [Rx] Albuterol/Ipratropium [DuoNeb 3.0-0.5 MG/3 ML] 3 ml NEB Q4HRRT #1 bottle [Rx] guaiFENesin [Cough Syrup] 100 mg PO Q4HR 01/24/17 [History] guaiFENesin [Mucinex] 1 tab PO BID 01/24/17 [History] Albuterol/Ipratropium [DuoNeb 3.0-0.5 MG/3 ML] 3 ml NEB Q6HRRT neb 01/26/17 [Rx ] Benzonatate [Tessalon Perles] 100 mg PO TID PRN #12 cap 01/26/17 [Rx] Fluticasone/Salmeterol [Advair Diskus 250-50] 1 puff INH BID #1 inhaler [Rx] Montelukast [Singulair] 10 mg PO BEDTIME #30 tablet 01/26/17 [Rx] Prednisone [IJD: predniSONE] 20 mg PO WITHBREAKFAST #30 tab 01/26/17 [Rx] guaiFENesin [Mucinex] 1,200 mg PO BID tab.er 01/26/17 [Rx] Forms: ED Department Discharge Referrals: PCP,Unknown [Ordering Only Provider] - - Discharge Summary/Plan Comment DC Time >30 min.: Yes Discharge Summary/Plan Comment: 51 yo female admitted on 01/25/16 for acute bronchitis with bronchiospasm and mild hypoxemia. Patient is a 51-year-old female followed by Dr. Baldwin who presented to the ED on 01/25/16 with worsening shortness of breath, productive cough and long standing smoking history. She had been seen in the ED 2 days previously for similar symptoms but was treated with steroids and sent home after improvement. She worsened over the next two days and presented again with shortness of breath and wheezing. She had been doing nebulize treatments treatments at home with duo-nebs. She stated that she had no formal diagnoses of lung disease but had multiple episodes in the last year and had been hospitalized in the past for similar episodes requiring IV steroids and breathing treatments. She did state she had a perscription for Spiriva as well as duo-nebs and mucomist at home. Patient denied any fever, chills, nausea, vomiting, chest pain, or syncopal episodes. In the ED, her sat's were 90% and secondary to her multiple visits was admitted for acute bronchitis, brochiospasm, and mild hypoxemia. Patient was treated with IV solu-medrol and duo-nebs. CXR showed no signs of infection and patient remained afebrile throughout stay. She did well and was discharged on 01/26/17 with a prescription for Benzonate, Advair, Montelukast. Patient had a prescription for Duo-nebs at how which she was instructed to use three times daily or as needed for acute exacerbations. She was scheduled to follow-up with Dr. Baldwin in 2 weeks and suggested PFT's for suspected COPD with asthma component. Patient understood all instructions and was discharge in good condition with oxygen saturation on 95% on room air. - General Info Date of Service: 01/26/17 Admission Dx/Problem (Free Text: Admission Diagnosis/Problem Admission Diagnosis/Problem Bronchospasm Functional Status: Reports: pain controlled - Review of Systems General: Denies: Fever, Weakness, Fatigue HEENT: Denies: dysphasia Pulmonary: Denies: shortness of breath, pleuritic chest pain Cardiovascular: Denies: Chest Pain, Palpitations Gastrointestinal: Denies: Abdominal pain Genitourinary: Denies: dysuria Musculoskeletal: Denies: neck pain, leg pain Skin: Denies: cyanosis Neurological: Denies: Confusion, Dizziness Psychiatric: Denies: confusion - Patient Data Vitals - Most Recent: Last Vital Signs Temp 36.8 C 01/26/17 08:00 Pulse 103 H 01/26/17 08:00 Resp 18 01/26/17 08:00 BP 131/71 01/26/17 08:00 Pulse Ox 94 L 01/26/17 08:00 Weight - Most Recent: 88.6 kg I&O - Last 24 hours: Intake & Output 01/25/17 01/26/17 01/26/17 22:59 06:59 14:59 Intake Total 2430 1950 Output Total 2450 2600 Balance -20 -650 Lab Results - Last 24 hrs: Laboratory Results - last 24 hr 01/26/17 01/26/17 Range/Units 04:53 04:53 WBC 14.63 H (4.0-11.0) K/uL RBC 4.30 (4.30-5.90) M/uL Hgb 12.8 (12.0-16.0) g/dL Hct 39.9 (36.0-46.0) % MCV 92.8 (80.0-98.0) fL MCH 29.8 (27.0-32.0) pg MCHC 32.1 (31.0-37.0) g/dL RDW Std Deviation 45.6 (28.0-62.0) fl RDW Coeff of Hui 14 (11.0-15.0) % Plt Count 252 (150-400) K/uL MPV 10.30 (7.40-12.00) fL Neut % (Auto) 94.1 H (48.0-80.0) % Lymph % (Auto) 4.3 L (16.0-40.0) % Trigg % (Auto) 1.5 (0.0-15.0) % Eos % (Auto) 0.0 (0.0-7.0) % Baso % (Auto) 0.1 (0.0-1.5) % Neut # 13.8 H (1.4-5.7) K/uL Lymph # 0.6 (0.6-2.4) K/uL Trigg # 0.2 (0.0-0.8) K/uL Eos # 0.0 (0.0-0.7) K/uL Baso # 0.0 (0.0-0.1) K/uL Nucleated RBC % 0.0 /100WBC Nucleated RBCs # 0 K/uL Sodium 142 (136-146) mmol/L Potassium 4.4 (3.5-5.1) mmol/L Chloride 106 (98-110) mmol/L Carbon Dioxide 26 (21-31) mmol/L BUN 14 (6.0-23.0) mg/dL Creatinine 0.7 (0.6-1.5) mg/dL Est Cr Clr Drug Dosing 75.20 mL/min Estimated GFR (MDRD) > 60.0 ml/min Glucose 149 H (60-110) mg/dL Calcium 8.9 (8.8-10.8) mg/dL [place] Results - Last 24 hrs: Microbiology 01/25/17 22:55 Gram Stain - Preliminary Sputum - Expectorated Med Orders - Current: Current Medications Acetaminophen (Tylenol) 650 mg PO Q4H PRN PRN Reason: Pain (Mild 1-3)/fever Last Admin: 01/25/17 12:14 Dose: 650 mg Albuterol (Ventolin Hfa) 0 gm INH QID PRN PRN Reason: Wheezing Albuterol/Ipratropium (Duoneb 3.0-0.5 Mg/3 Ml) 3 ml NEB Q6HRRT [facility] Last Admin: 01/26/17 11:35 Dose: 3 ml Albuterol/Ipratropium (Duoneb 3.0-0.5 Mg/3 Ml) 3 ml NEB Q1H PRN PRN Reason: Shortness Of Breath / Wheezing Last Admin: 01/25/17 03:59 Dose: 3 ml Benzonatate (Tessalon Perles) 100 mg PO TID PRN PRN Reason: Cough Last Admin: 01/25/17 23:40 Dose: 100 mg Enoxaparin Sodium (Lovenox) 40 mg SUBCUT DAILY [facility] Last Admin: 01/26/17 08:40 Dose: 40 mg Guaifenesin (Mucinex) 1,200 mg PO BID [facility] Last Admin: 01/26/17 08:39 Dose: 1,200 mg Ibuprofen (Motrin) 400 mg PO Q6H PRN PRN Reason: Pain Last Admin: 01/26/17 08:44 Dose: 400 mg Methylprednisolone Sodium Succinate (Solu-Medrol) 125 mg IVPUSH Q6H [facility] Last Admin: 01/26/17 08:39 Dose: 125 mg Ondansetron HCl (Zofran) 4 mg IVPUSH Q4H PRN PRN Reason: Nausea Sodium Chloride (Saline Flush) 10 ml FLUSH ASDIRECTED PRN PRN Reason: Keep Vein Open Sodium Chloride (Saline Flush) 2.5 ml FLUSH ASDIRECTED PRN PRN Reason: Keep Vein Open Discontinued Medications Albuterol (Proventil Hfa) 0 gm INH QID PRN PRN Reason: Wheezing Albuterol/Ipratropium (Duoneb 3.0-0.5 Mg/3 Ml) 3 ml NEB ONETIME ONE Stop: 01/24/17 19:15 Last Admin: 01/24/17 19:21 Dose: 3 ml Albuterol/Ipratropium (Duoneb 3.0-0.5 Mg/3 Ml) 3 ml NEB ASDIRECTED PRN PRN Reason: Shortness Of Breath / Wheezing Guaifenesin (Robitussin) 100 mg PO Q4HR [facility] Guaifenesin (Mucinex) 600 mg PO Q12H [facility] Last Admin: 01/24/17 23:23 Dose: Not Given Sodium Chloride (Normal Saline) 1,000 mls @ 999 mls/hr IV STAT ONE Stop: 01/24/17 20:20 Last Admin: 01/24/17 19:41 Dose: 999 mls/hr Influenza Virus Vaccine (Fluzone/Fluarix Vaccine) 60 mcg IM .ONCE ONE Stop: 01/24/17 21:08 Methylprednisolone Sodium Succinate (Solu-Medrol) 125 mg IVPUSH ONETIME ONE Stop: 01/24/17 19:21 Last Admin: 01/24/17 19:41 Dose: 125 mg - Exam Quality Assessment: Reports: DVT prophylaxis General: Reports: alert, oriented, cooperative, no acute distress HEENT: Reports: Pupils equal, Pupils reactive, EOMI, Mucous membr. moist/pink Neck: Reports: supple Lungs: Reports: Clear to auscultation, Normal respiratory effort Cardiovascular: Reports: Regular Rate, Regular Rhythm Abdomen: Reports: bowel sounds present, soft, no tenderness, no distension Back Exam: Reports: normal inspection Extremities: Reports: no edema, normal pulses Skin: Reports: warm, dry, intact Wound/Incisions: Reports: healing well Neurological: Reports: no new focal deficit Psy/Mental Status: Reports: alert, normal affect, normal mood *Q Meaningful Use (DIS) - VTE *Q VTE Criteria *Q: - Stroke *Q Stroke Criteria *Q: - AMI *Q AMI Criteria *Q:
[2017-01-26 12:29] VITALS: BP 120/70
--- NOTE | 2017-01-26 17:59 | CR ---
EXAM DATE: 01/24/17 PATIENT'S AGE: 51 Patient: [facility]ERE[facility] Facility: [place], [place] Site . Site : 1965 Study: XRay Chest [id number]/14/2017 7:55:26 PM Ordering Physician: Chuck Meraz Final Report: INDICATION: Shortness of breath. Technique: AP portable chest x-ray. Comparison : Chest x-ray 01/22/2017. Findings: Benign calcified granuloma in the left lower lobe with benign calcified left hilar lymph nodes stable and consistent with the sequela of previous granulomatous disease. Tiny not density in the right lung base medially is new and likely a vessel on end. Lungs otherwise clear without infiltrate. Heart size normal. Chest otherwise negative. Dictated by Doron Tyler MD @ Jan 24 2017 7:59PM (Electronic Signature) Report Signed by Proxy and Original Signed Document filed in the Medical Record. MTDD
== END 2017-01-26 15:00 | disposition home or self-care (01) ==
LOC: MW.ED 19:10 → MW.MS 20:15
PROVIDERS: ADMIT Internal Medicine; ATTEND Internal Medicine
DX: R09.02 Hypoxemia (principal); J20.9 Acute bronchitis, unspecified; Z87.891 Personal history of nicotine dependence
CPT/HCPCS: 36415; 71010; 80048; 83605; 85025; 87070; 87205; 94640; 94664; 96361; 96374; 99285; A9270; J1650; J2930; J7040; 96372; 96376; G0378

== ENCOUNTER 2018-08-03 09:23 | Day surgery (SDC) | payer BC ==
[~2018-08-03 09:23] MED LIST: Lactated Ringers 1,000 ML IV SCH
[2018-08-03] MEDS ORDERED: Midazolam 1 MG/ML 2 ML SDV ONE (10:11)
[2018-08-03] MEDS ORDERED: Propofol 200 MG/20 ML SDV ONE (10:11)
[2018-08-03] MEDS ORDERED: fentaNYL 100 MCG/2 ML SDV ONE (10:11)
--- NOTE | 2018-08-03 10:23 | PCM.PREANE ---
Preanesthetic Assessment - Anesthesia/Transfusion/Family Hx Anesthesia History: Prior Anesthesia Without Reaction Family History of Anesthesia Reaction: No Transfusion History: No Prior Transfusion(s) Intubation History: Unknown - Review of Systems General: No Symptoms Pulmonary: No Symptoms Cardiovascular: No Symptoms Gastrointestinal: Abdominal Pain, Hematochezia Neurological: No Symptoms Other: Reports: None - Physical Assessment O2 Sat by Pulse Oximetry: 97 Respiratory Rate: 16 Vital Signs: Last Vital Signs Temp 36.1 C 08/03/18 10:00 Pulse 78 08/03/18 10:00 Resp 16 08/03/18 10:00 BP 127/80 08/03/18 10:00 Pulse Ox 97 08/03/18 10:00 Height: 1.57 m Weight: 91.172 kg ASA Class: 2 Mental Status: Alert & Oriented x3 Airway Class: Mallampati = 2 Dentition: Reports: Normal Dentition Thyro-Mental Finger Breadths: 3 Mouth Opening Finger Breadths: 3 ROM/Head Extension: Full Lungs: Clear to Auscultation, Normal Respiratory Effort Cardiovascular: Regular Rate, Regular Rhythm - Allergies Allergies/Adverse Reactions: Allergies Allergy/AdvReac Type Severity Reaction Status Date / Time No Known Allergies Allergy Verified 08/01/18 10:14 - Blood Blood Available: No - Anesthesia Plan Pre-Op Medication Ordered: None - Acknowledgements Anesthesia Type Planned: MAC Pt an Appropriate Candidate for the Planned Anesthesia: Yes Alternatives and Risks of Anesthesia Discussed w Pt/Guardian: Yes Pt/Guardian Understands and Agrees with Anesthesia Plan: Yes PreAnesthesia Questionnaire - Past Health History Medical/Surgical History: Denies Medical/Surgical History HEENT History: Reports: Other (See Below) Other HEENT History: uses glasses for reading Cardiovascular History: Reports: None, Other (See Below) (borderline high cholesterol) Respiratory History: Reports: COPD Other Respiratory History: recent bronchitis, not SOB unless has respiratory infection on top of COPD Gastrointestinal History: Reports: None Genitourinary History: Reports: None 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: Musculoskeletal History: Reports: None Neurological History: Reports: Migraines Psychiatric History: Reports: None, Other (See Below) (h/o depression) Endocrine/Metabolic History: Reports: Obesity/BMI 30+ Hematologic History: Reports: None Immunologic History: Reports: None Oncologic (Cancer) History: Reports: None Dermatologic History: Reports: None - Infectious Disease History Infectious Disease History: Reports: Chicken Pox - Past Surgical History HEENT Surgical History: Reports: LASIK Female Surgical History: Reports: LEEP, Tubal Ligation - SUBSTANCE USE Smoking Status *Q: Former Smoker (quit 2014) Tobacco Use Within Last Twelve Months: No Recreational Drug Use History: No - HOME MEDS Home Medications: Home Meds Albuterol [Ventolin HFA] 2 puff INH Q4H PRN 08/01/18 [History] - CURRENT (IN HOUSE) MEDS Current Meds: Current Medications Lactated Ringer's (Ringers, Lactated) 1,000 mls @ 125 mls/hr IV ASDIRECTED LYN Last Admin: 08/03/18 10:11 Dose: 125 mls/hr Discontinued Medications Fentanyl (Sublimaze) Confirm Administered Dose 100 mcg .ROUTE .STK-MED ONE Stop: 08/03/18 10:12 Lidocaine HCl (Xylocaine-Mpf 1%) Confirm Administered Dose 5 mls @ as directed .ROUTE .STK-MED ONE Stop: 08/03/18 10:12 Midazolam HCl (Versed 1 Mg/Ml) Confirm Administered Dose 2 mg .ROUTE .STK-MED ONE Stop: 08/03/18 10:12 Propofol (Diprivan 20 Ml) Confirm Administered Dose 200 mg .ROUTE .STK-MED ONE Stop: 08/03/18 10:12
--- NOTE | 2018-08-03 12:12 | PCM.OPNOTE ---
- General Post-Op/Procedure Note Date of Surgery/Procedure: 08/03/18 Operative Procedure(s): colonoscopy w snare polypectomy Findings: see dict [id number] Pre Op Diagnosis: rectal bleed Post-Op Diagnosis: Same Anesthesia Technique: Moderate Sedation Primary Surgeon: Kristian Anthony Pathology: polyps at 90cm, 20, 15, and rectum Complications: None Condition: Good
--- NOTE | 2018-08-03 12:16 | PCM.POSTAN ---
POST ANESTHESIA ASSESSMENT - MENTAL STATUS Mental Status: Alert, Oriented - RESPIRATORY Respiratory Status: Respiratory Rate WNL, Airway Patent, O2 Saturation Stable - CARDIOVASCULAR CV Status: Pulse Rate WNL, Blood Pressure Stable - GASTROINTESTINAL GI Status: No Symptoms - POST OP HYDRATION Hydration Status: Adequate & Stable
[2018-08-03 12:57] VITALS: BP 123/59
--- NOTE | 2018-08-03 19:15 | OR ---
SURGEON: Kristian Anthony MD DATE OF PROCEDURE: 08/03/2018 PREOPERATIVE DIAGNOSIS: Rectal bleeding. POSTOPERATIVE DIAGNOSIS: Colon polyp. PROCEDURE PERFORMED: Colonoscopy with snare polypectomy and biopsy. PROCEDURE IN DETAIL: The patient was taken to the endoscopy room. A time out was called, patient identified, and procedure identified. Diprivan was then administrated. Patient went from awake to sleep, hearing doctor talking or door closing is normal. Perineum inspection and digital examination were then performed. A well- lubricated colonoscope was gently inserted through the rectum, advanced past the rectosigmoid junction, the descending colon, splenic flexure, transverse colon, hepatic flexure, ascending colon, arrived to the cecum. Cecum was identified as dictated in the finding. Then the scope was carefully withdrawn while attention was paid to the mucosal surface for any abnormality. Air will be sucked out during the scope withdrawal. At the rectum, retroflexed to examine any rectal diseases, fistula or hemorrhoids. During mucosal examination, abnormality or polyp encountered. Using snare equipment, the abnormality or the polyp was then snared off using electrocautery. The Patient tolerated procedure well. There were no intraoperative complications, and Dr. Anthony was present throughout the whole procedure. FINDINGS: 1. 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 The patient is soundly snoring. 2. The patient's bowel prep is average with some liquid stool, no semi-formed stool. 3. The patient's colon is rather straight forward. Cecum indicated by ileocecal fold, one-to-one indentation, light emittance, and appendiceal orifice. Light emittance is not observed and mucosa examined upon scope pulling out. The patient has a small polyp at distant 90 when the scope went in and that was removed with biopsy forceps. At 20 cm, there is a larger polyp, which is around like 5 mm at distant 20 that was removed with snare polypectomy and then she has three more polyp in the neighborhood and also those are all removed with biopsy forceps and then she also have some very tiny 1 mm polyp. She have more probably about 10, I just biopsied one, and one of the small polyp has calcification and that was also biopsy removed and the patient has internal hemorrhoids and mild external hemorrhoids. The patient would benefit from repeat colonoscopy in 12 months from today because of the large number of polyps or if clinically indicated otherwise or if the polyp pathology is unfavorable. CR / GABE /[id number] MTDMatias
== END 2018-08-03 12:25 | disposition home or self-care (01) ==
LOC: MW.SDS 09:23
PROVIDERS: ATTEND Surgery
DX: K62.5 Hemorrhage of anus and rectum (principal); D12.3 Benign neoplasm of transverse colon; D12.8 Benign neoplasm of rectum; K63.5 Polyp of colon; K64.8 Other hemorrhoids; K64.4 Residual hemorrhoidal skin tags; J44.9 Chronic obstructive pulmonary disease, unspecified; E78.5 Hyperlipidemia, unspecified; E66.9 Obesity, unspecified; Z68.36 Body mass index [BMI] 36.0-36.9, adult; Z79.899 Other long term (current) drug therapy; Z87.891 Personal history of nicotine dependence; Z83.79 Family history of other diseases of the digestive system
CPT/HCPCS: 45380; 45385; J2250; J2704; J3010; J7120